=== PATIENT | female | born 2000 | race Caucasian/White ===

== ENCOUNTER 2023-04-28 11:46 | Emergency (ER) | payer OTHER, BC ==
[2023-04-28] MEDS ORDERED: Lidocaine 1% 5 ML VIAL INJECT ONE (12:38)
[2023-04-28] MEDS ORDERED: Diphtheria,Pertussis(Acell),Tetanus Vaccine 0.5 ML Syringe IM ONE (12:38)
[2023-04-28] MEDS ORDERED: Bacitracin Oint 1 GM U/D Packet TOP ONE (13:34)
[2023-04-28] MEDS ORDERED: Cephalexin 500 MG Cap PO ONE (13:36)
== END 2023-04-28 13:40 | disposition home or self-care (01) ==
LOC: MW.ED 11:46
DX: S61.011A Laceration without foreign body of right thumb without damage to nail, initial encounter (principal); Z23 Encounter for immunization; W26.8XXA Contact with other sharp object(s), not elsewhere classified, initial encounter; Y92.89 Other specified places as the place of occurrence of the external cause; Y99.0 Civilian activity done for income or pay
CPT/HCPCS: 12002; 73140; 90471; 90715; 99283; A9270; J3490